=== PATIENT | female | born 1950 | race Caucasian/White ===

== ENCOUNTER 2019-03-05 18:10 | Inpatient (IN) | payer MEDICARE, MEDICAID ==
[~2019-03-05] VITALS: Ht 170.2 cm; Wt 65.8 kg
[2019-03-05] MEDS ORDERED: IBUP-1955 PO (18:24)
[2019-03-05] MEDS ORDERED: DOXY100C41 PO (18:24)
--- NOTE | 2019-03-05 18:27 | NUR ---
PT IS IN ROOM #1B. DR TONEY EVALUATED THE PT.
[2019-03-05] MEDS ORDERED: MAG HYDROX/AL HYDROX/SIMETH 30 ML LIQUID UDC PO ONE (18:30)
[2019-03-05] MEDS ORDERED: LIDOCAINE VISCUS 2% 15 ML UDC MM ONE (18:30)
[2019-03-05] MEDS ORDERED: MAG HYDROX/AL HYDROX/SIMETH 30 ML LIQUID UDC ONE (18:32)
[2019-03-05] MEDS ORDERED: LIDOCAINE VISCUS 2% 15 ML UDC ONE (18:32)
[2019-03-05 18:43] LABS: BASOPHILS # (AUTO) 0.1 K/uL (0.0-8.0); BASOPHILS % (AUTO) 0.9 % (0.0-2.0); EOSINOPHILS % (AUTO) 0.6 % (0.0-7.0); HEMATOCRIT 34.9 % (31.2-41.9); HEMOGLOBIN 11.7 g/dL (10.9-14.3); LYMPHOCYTES # (AUTO) 1.2 K/uL (20.0-40.0); LYMPHOCYTES % (AUTO) 22.4 % (20.5-51.5); MEAN CORPUSCULAR HEMOGLOBIN 32.4 uug (24.7-32.8); MEAN CORPUSCULAR HGB CONC 33 g/dL (32.3-35.6); MONOCYTES # (AUTO) 0.8 K/uL (2.0-10.0); MONOCYTES % (AUTO) 14.5 % (0.0-11.0); NEUTROPHILS # (AUTO) 3.4 K/uL (1.8-8.9); NEUTROPHILS % (AUTO) 61.6 % (38.5-71.5); PLATELET COUNT (AUTO) 226 K/uL (179-408); WHITE BLOOD COUNT (AUTO) 5.5 K/uL (3.8-11.8)
[2019-03-05 18:51] LABS: CREATININE 0.7 mg/dL (0.6-1.3); POTASSIUM 3.5 mmol/L (3.5-5.1)
[2019-03-05 19:06] LABS: BILIRUBIN,DIRECT 0.2 mg/dL (0.0-0.2); BILIRUBIN,TOTAL 0.8 mg/dL (0.2-1.0); TOTAL PROTEIN, SERUM 7.1 g/dL (6.4-8.2)
[2019-03-05] MEDS ORDERED: LEVOFLOXACIN 750 MG/D5W 150 ML PIGGYBACK IV ONE (19:15)
--- NOTE | 2019-03-05 19:29 | NUR ---
report was given to access rnweight shifter.
[2019-03-05 20:05] VITALS: BP 131/80
[2019-03-05] MEDS ORDERED: LEVOFLOXACIN 750MG/D5W 150 ML IV ONE (20:23)
[2019-03-05] MEDS ORDERED: Z GUARD REMEDY PASTE 57 GM TUBE TOP PRN (20:30)
[2019-03-05] MEDS ORDERED: ONDANSETRON 4 MG/2 ML VIAL IV PRN (20:30)
[2019-03-05] MEDS ORDERED: MAGNESIUM HYDROXIDE 30 ML LIQUID UDC PO PRN (20:30)
--- NOTE | 2019-03-05 20:38 | NUR ---
Pt. admitted to TELE 318, under care of Dr. FIERRO Belongs List completed
--- NOTE | 2019-03-05 20:38 | NUR ---
ADMITTING REPORT GIVEN TO HELDER GALVIN.
--- NOTE | 2019-03-05 21:15 | NUR ---
Patient is a 68 year old female admitted to telemetry from ED. Diagnosis is pneumonia. Tele monitor attached to patient. Patient in sinus rhythm on tele monitor. No respiratory distress. Vitals within normal limits. Skin in tact. IV on right hand flushing. Levaquin hung in ED and still currently running. Health history obtained from patient. Admission protocols in place. Comfort provided, needs attended. Will continue to monitor patient.
[2019-03-05] MEDS: IV NS 1000 ML 1,000 ML IV PRN ×2 (22:07→22:56)
--- NOTE | 2019-03-05 22:24 | NUR ---
Patient request Ambien for sleep. Dr. Cagle notified. Ambien 5 mg PO hs ordered.
[2019-03-05] MEDS: ACETAMINOPHEN 325 MG TABLET PO PRN (23:11)
[2019-03-05] MEDS: ZOLPIDEM 5 MG TABLET PO PRN ×2 (23:43→23:55)
[2019-03-06 00:19] VITALS: BP 113/48
[2019-03-06 04:00] VITALS: BP 122/52
[2019-03-06 06:33] LABS: BASOPHILS % (AUTO) 0.7 % (0.0-2.0); EOSINOPHILS % (AUTO) 0.4 % (0.0-7.0); HEMATOCRIT 34.6 % (31.2-41.9); HEMOGLOBIN 11.4 g/dL (10.9-14.3); LYMPHOCYTES # (AUTO) 1.3 K/uL (20.0-40.0); MEAN CORPUSCULAR HEMOGLOBIN 32.3 uug (24.7-32.8); MEAN CORPUSCULAR HGB CONC 33 g/dL (32.3-35.6); MEAN CORPUSCULAR VOLUME 98.1 fL (75.5-95.3); MONOCYTES # (AUTO) 0.9 K/uL (2.0-10.0); MONOCYTES % (AUTO) 16.9 % (0.0-11.0); NEUTROPHILS # (AUTO) 3.1 K/uL (1.8-8.9); PLATELET COUNT (AUTO) 218 K/uL (179-408); RED BLOOD CELL COUNT(AUTO) 3.53 MIL/uL (3.63-4.92); WHITE BLOOD COUNT (AUTO) 5.3 K/uL (3.8-11.8)
--- NOTE | 2019-03-06 06:46 | NUR ---
Patient slept throughout the night. Given ambien 5 mg for sleep. Denies discomfort/ pain at the moment. Sinus tele on the monitor. No acute change. Will endorse accordingly.
[2019-03-06 06:49] LABS: CREATININE 0.7 mg/dL (0.6-1.3); MAGNESIUM 1.9 mg/dL (1.8-2.4); PHOSPHOROUS 2.8 mg/dL (2.5-4.9); POTASSIUM 3.9 mmol/L (3.5-5.1)
[2019-03-06 09:30] LABS: BAND % (MANUAL) 3 % (0-10); BASOPHILS % (MANUAL) 2 % (0-2); LYMPHOCYTES % (MANUAL) 23 % (20-40); MONOCYTES % (MANUAL) 17 % (2-10); NEUTROPHILS % (MANUAL) 55 % (42-75)
[2019-03-06 11:57] VITALS: BP 104/54
--- NOTE | 2019-03-06 12:02 | NUR ---
NPO FOR CT CHEST WITH CONTRAST. STILL WITH ON AND OFF DRY COUGH ACCOMPANIED WITH PAIN RELIVED BY DAVINA.. SEEN BY DR DYER SEE NOTES
[2019-03-06] MEDS: HYDROCODONE/APAP 5-325MG TABLET PO PRN ×2 (12:12→20:44)
[2019-03-06] MEDS: IV NS 1000 ML 1,000 ML IV PRN (12:13)
[2019-03-06] MEDS ORDERED: SWABABLE VALVE TRANSFER SET EA MC ONE (12:48)
[2019-03-06] MEDS ORDERED: IV NORMAL SALINE 250 ML IV ONE (12:50)
[2019-03-06] MEDS ORDERED: IOHEXOL 300MG/ML 100 ML INFUS..BTL ONE (12:50)
[2019-03-06 15:53] VITALS: BP 126/63
[2019-03-06] MEDS: ACETAMINOPHEN 325 MG TABLET PO PRN ×2 (17:44→23:54)
--- NOTE | 2019-03-06 17:51 | NUR ---
AWAITING CT CHEST WITH CONTRAST RESULTS, DENIES CHEST PIAN, MEDICATED FOR SABILLON WITH GOOD RELIEF
[2019-03-06 20:00] VITALS: BP 117/67
[2019-03-06] MEDS ORDERED: LEVOFLOXACIN 500 MG/D5W 500 MG in PREMIXED 1 EACH IV SCH (20:00)
[2019-03-06] MEDS: ZOLPIDEM 5 MG TABLET PO PRN (23:54)
[2019-03-07 00:15] VITALS: BP 110/42
[2019-03-07 05:07] VITALS: BP 100/50
[2019-03-07] MEDS ORDERED: LEVO500T2 PO (10:04)
[2019-03-07 11:41] VITALS: BP 110/59
--- NOTE | 2019-03-07 14:40 | NUR ---
IV D/C'D. ALL HOME INSTRUCTIONS REVIEWED WITH PT. PHARMACIST AT BEDSIDE TO REVIEW HOME RX. DISCHARGED TO SISTER VIA W/C.
== END 2019-03-07 14:40 | disposition home or self-care (01) | DRG 195 ==
LOC: ER 18:12 → TELE3 20:56 → MEDSURG3 03-06 09:00 → TELE3 03-06 14:55
PROVIDERS: ADMIT Internal Medicine; ATTEND Internal Medicine
DX: J15.9 Unspecified bacterial pneumonia (principal); R07.89 Other chest pain; Z88.0 Allergy status to penicillin
CPT/HCPCS: 36415; 70030-TC; 71045; 71260; 83605; 83735; 84100; 85025; 85730; 87040; 93005; A4663; G0378; J1956; J3490; J7030; J7050; Q9967